=== PATIENT | male | born 1960 ===

== ENCOUNTER 2022-10-10 07:24 | Outpatient (CLI) | payer OTHER | END 2022-10-10 07:27 | disposition home or self-care (01) | LOC: NUCLEAR 07:24 | PROVIDERS: ATTEND Internal Medicine Cardiovascular Disease | DX: I20.8 Other forms of angina pectoris (principal); E78.2 Mixed hyperlipidemia; R07.9 Chest pain, unspecified; R06.00 Dyspnea, unspecified | CPT/HCPCS: 78452; 93017; A9500 ==